=== PATIENT | female | born 1950 | race Caucasian/White ===

== ENCOUNTER 2016-08-23 18:00 | Inpatient (IN) | payer OTHER ==
--- NOTE | ~2016-08-23 | PN ---
Unit #: [id number] #: [id number] Patient: STEPHEN VALERA [id number] [facility] [address] [place] [address] [id number] MR#: [id number] NAME: STEPHEN VALERA ROOM: P251 Age: 66 Sex: F Admission Date: 08/23/2016 : 1950 Attending Physician: Que Mireles M.D. Admitting Physician: Que Mireles M.D. Primary Care Physician: Primary Care Physician Chantal BARNES PROGRESS NOTES DATE August 29, 2016 DISCUSSION Ms. Valera is a 66-year-old white female, who was seen today and chart was reviewed and the case was discussed with the staff. She has been anxious, withdrawn, and rather seclusive to herself. Meanwhile, she has been cooperative with the treatment recommendations and she has been taking her medications and tolerating them fairly well with no reported side effects. MENTAL STATUS EXAMINATION Middle-aged white female, who was casually dressed with fair personal hygiene and appears to be in no acute distress or discomfort. She was awake and alert on interaction with intact orientation. Her mood was anxious with a congruent affect. The patient denies any suicidal or homicidal ideations. Her insight and judgment remain slightly impaired. TREATMENT PLAN 1. We will continue her on her current medications and treatment protocol, and will monitor her response to the medications, and make further adjustments as needed. 2. We will continue to followup. Dictated by... Don John/hilda TD: 08/30/2016 11:29 JOB #: [id number] Unit #: [id number] #: [id number] Patient: STEPHEN VALERA PROGRESS NOTES Page 1 of 1 X Que Mireles MD PROGRESS NOTE
--- NOTE | ~2016-08-23 | PN ---
Unit #: [id number] #: [id number] Patient: STEPHEN VALERA [id number] [facility] [address] [place] [address] [id number] MR#: [id number] NAME: STEPHEN VALERA ROOM: P251 Age: 66 Sex: F Admission Date: 08/23/2016 : 1950 Attending Physician: Que Mireles M.D. Admitting Physician: Que Mireles M.D. Primary Care Physician: Primary Care Physician Chantal PARDO NOTES DATE 08/28/2016 DISCUSSION Ms. Valera is a 66-year-old white female who was seen today and chart was reviewed and case was discussed with the staff. She has been doing somewhat better and has been calm and cooperative and compliant with treatment recommendations. She has been taking medications and tolerating them fairly well with no reported side effects. MENTAL STATUS EXAMINATION An elderly white female who was casually dressed with fair personal hygiene, appears to be in no acute distress or discomfort. She was awake and alert on interaction with intact orientation. Her mood was anxious with congruent affect. She denies any suicidal or homicidal ideations. Her insight and judgement remains slightly impaired. TREATMENT PLAN We will continue her on her current medications and treatment protocol. We will monitor her response and make further adjustments as needed. Dictated by... Don John/nery TD: 08/30/2016 03:42 JOB #: [id number] PEAAPRYL PROGRESS NOTES Page 1 of 1 X Que Mireles MD PROGRESS NOTE
--- NOTE | ~2016-08-23 | PA ---
Unit #: [id number] #: [id number] Patient: STEPHEN CARNES [id number] [facility] [address] [place] [address] [id number] I MR#: [id number] NAME: STEPHEN CARNES ROOM: P178 Age: 66 Sex: F Admission Date: 08/23/2016 : 1950 Date of Assessment: 08/24/2016 Attending Physician: Que Mireles M.D. Admitting Physician: Que Mireles M.D. PSYCHIATRIC ASSESSMENT DATE OF SERVICE 08/24/2016. IDENTIFYING DATA Ms. Perrin is a 66-year-old, , white female, who is a resident of [place], [place] and was transferred to us from [facility] in [place], [place], and was accompanied by her family members. CHIEF COMPLAINT "I'm extremely dehydrated, I've not eaten for 3 days." HISTORY OF PRESENT ILLNESS Ms. Perrin is a 66-year-old white female, who was brought to the hospital reporting increasing depression, and having not eaten in 3 days feeling dehydrated and "I'm extremely depressed, I've been depressed since my went into the [facility] 5 months ago. I've lived by myself now. I've been drinking a pint of vodka a day for years." The patient reports that she has been alone and has been feeling isolating herself, and has not been eating and has been drinking heavy amounts of alcohol, and has been decompensating and reports increasing depression with vegetative symptoms and feelings of hopelessness and helplessness, though she denied any suicidal ideations, it appears that she has not been functioning and has been decompensating and was seen to be a significant danger to herself and as such, recommendation for inpatient level of care for safety and stabilization was made and the patient was medically cleared at the [facility] and then transferred to us. SUBSTANCE ABUSE HISTORY The patient reports a long history of alcohol dependence stating that she has been drinking for the last 30+ years and has been drinking a pint of vodka a day and denies any other drug abuse. PAST PSYCHIATRIC HISTORY The patient has had a history of inpatient psychiatric and chemical dependency treatment at [facility], [facility] and at other facilities, and review of the medical records indicate that currently she is on Effexor, Lamictal and BuSpar, but does not appear to be showing a therapeutic response to the medications. PAST MEDICAL HISTORY The patient's medical history is significant for hypertension. ALLERGIES Unit #: [id number] #: [id number] Patient: STEPHEN CARNES No known medication allergies. PERSONAL AND SOCIAL HISTORY A 66-year-old white female, who reports that she is and lives alone after her was placed in a [facility]. She reports poor social support system. MENTAL STATUS EXAMINATION An elderly white female, who was casually dressed with fair personal hygiene, appears to be in no acute distress or discomfort. She was awake and alert with impaired attention and concentration. Her mood was anxious and depressed with a congruent affect. Her speech was slow and restricted in content. She reports having suicidal ideations, but denies any homicidal ideations, and also denies any auditory or visual hallucinations. Her insight and judgment remain significantly impaired. DIAGNOSTIC IMPRESSION Psychiatric: Alcohol dependence, moderate and acute withdrawals; major depressive disorder, recurrent, moderate, without psychotic features. Medical: Hypertension. Stressors: Moderate psychosocial stressors. TREATMENT PLAN 1. The patient has presented with a history of mood disorder and substance abuse and has been decompensating and will need inpatient hospitalization for detoxification, safety, and stabilization. We will start her on detox protocol. We will closely monitor for any worsening withdrawal symptoms. 2. Supportive therapy was provided to the patient. 3. Safe, structured, and nourishing environment will be reported. ESTIMATED LENGTH OF STAY 4 to 5 days. ABILITY TO HELP SELF Limited. WILLINGNESS TO HELP SELF The patient appears to be willing to help self. STRENGTHS 1. Communicative. 2. Cooperative. PROBLEMS 1. Chronic dysphoric symptoms. 2. Chronic chemical dependency. 3. Poor social support system. DISCHARGE CRITERIA This will be contingent upon the patient's ability to go through detox without having any significant withdrawal symptoms as well as her ability to stay safe to herself, particularly after discharge from the hospital. Dictated by... Que Mireles M.D. Unit #: [id number] #: [id number] Patient: STEPHEN CARNES IAA/modl TD: 08/24/2016 08:29 JOB #: [id number] PSYCHIATRIC ASSESSMENT Page 1 of 1 X Que Mireles MD PSYCHIATRIC ASSESSMENT
--- NOTE | ~2016-08-23 | PN ---
Unit #: [id number] #: [id number] Patient: STEPHEN VALERA [id number] [facility] [address] [place] [address] [id number] I MR#: [id number] NAME: STEPHEN VALERA ROOM: P251 Age: 66 Sex: F Admission Date: 08/23/2016 : 1950 Attending Physician: Que Mireles M.D. Admitting Physician: Que Mireles M.D. Primary Care Physician: Primary Care Physician Chantal PARDO NOTES DATE August 26, 2016 DISCUSSION Ms. Valera is a 66-year-old white female, with mood disorder and alcohol dependence, who was seen today and chart was reviewed and the case was discussed with the staff. She has been anxious, withdrawn, and rather seclusive to herself and accepted whether she has been in a vegetative state and could not get up, and when we tried to get her up out of the bed even to a wheelchair, she acts like and reports that she has no strength in her legs. They cannot even get her out of her bed to change her bed sheets so they have to roll her around to change her bed sheets and staff also informed me that she can't even poor a glass of water to take her pills and they have to hold the glass of water and put pills in her mouth to make sure that she is getting her medications and she has been maintained on one-to-one level of precautions even though she has been in a private camera monitored room due to history of falls and the patient is unstable and unsteady on her daily functioning. She was unable to carry on any meaningful conversation with me and we will continue to maintain her on her current level of precautions and we will make further adjustments as needed. Dictated by... Don John/hilda TD: 08/26/2016 11:38 JOB #: [id number] Unit #: [id number] #: [id number] Patient: STEPHEN VALERA [facility] PROGRESS NOTES Page 1 of 1 X ChiQue oGnzalez MD X PROGRESS NOTE
--- NOTE | ~2016-08-23 | DS ---
Unit #: [id number] #: [id number] Patient: STEPHEN VALERA [id number] [facility] [address] [place] [id number] MR#: [id number] NAME: STEPHEN VALERA ROOM: P251 Age: 66 Sex: F Admission Date: 08/23/2016 : 1950 Discharge Date: 09/01/2016 Attending Physician: Que Mireles M.D. Primary Care Physician: Primary Care Physician No DISCHARGE SUMMARY IDENTIFYING DATA Ms. Valera is a 66-year-old white female, who is a resident of [place], [place] and was transferred to us from [facility] in [place]. DISCHARGE DIAGNOSES Psychiatric: Alcohol dependence, moderate and acute withdrawals; major depressive disorder, recurrent, moderate, without psychotic features. Medical: Hypertension. Stressors: Moderate psychosocial stressors. HISTORY OF PRESENT ILLNESS Please see initial psychiatric evaluation for details. PAST PSYCHIATRIC HISTORY Please see initial psychiatric evaluation for details. PAST MEDICAL HISTORY Please see initial psychiatric evaluation for details. HOSPITAL COURSE The patient [facility] and was oriented to the hospital environment. Routine p.r.n. medications were initiated. Upon initial presentation, the patient was seen to be unable to move at all and was unable to move even in her bed and staff for changing posture to prevent any bedsores and ordered to change the sheets, they have to move her one side to another and she could not even hold her glass of water to take the pills and staff were helping with that as well and apparently, she was walking and was taking care of herself at home just couple of weeks ago and has not moved and got out of the bed in the last week or so and has been drinking alcohol while in the bed and has been decompensating. She was seen to be very withdrawn, depressed with blunted affect, minimal interaction, and unable to carry on any conversation and was maintained on one-to-one level of precautions for safety and stabilization and medications were adjusted and she was resolved with rehab and then wheelchair was provided and staff had to assist her to get up and get in the wheelchair and put her feet down on the floor and put some weight and she was initially seen to be not responding and therefore had a rather complicated course of stay; however, she was encouraged and was able to follow, encouragement and was able to slowly come out and was taking the medications and started showing some improvement and then she proceeded from wheelchair to a walker and her oral intake was improved as well and overall, she was able to show a significant improvement and was able to come out, clean herself, and carry Unit #: [id number] #: [id number] Patient: STEPHEN VALERA on meaningful conversation with the staff and as such, it was decided that she will be discharged home and will continue treatment on an outpatient basis. DISCHARGE MEDICATIONS Remeron 15 mg at bedtime for depression. DISCHARGE CONDITION Stable. PROGNOSIS Fair. Dictated by... Don John/josh TD: 09/01/2016 07:57 JOB #: [id number] DISCHARGE SUMMARY Page 1 of 1 X Que Mireles MD X DISCHARGE SUMMARY
--- NOTE | ~2016-08-23 | PN ---
Unit #: [id number] #: [id number] Patient: STEPHEN VALERA [id number] [facility] [address] [place] [address] [id number] MR#: [id number] NAME: STEPHEN VALERA ROOM: P178 Age: 66 Sex: F Admission Date: 08/23/2016 : 1950 Attending Physician: Que Mireles M.D. Admitting Physician: Que Mireles M.D. Primary Care Physician: Primary Care Physician Chantal PARDO NOTES DATE August 25, 2016 DISCUSSION Ms. Valera is a 66-year-old white female, who was seen today and chart was reviewed and the case was discussed with the staff. She appears to be doing somewhat better than yesterday and was able to make eye contact and was trying to get out of her bed and transfer her into the wheelchair. Meanwhile, she has been taking the medications and tolerating them fairly well with no reported side effects. MENTAL STATUS EXAMINATION An elderly white female, who was casually dressed with fair personal hygiene and appears to be in no acute distress or discomfort. The patient was awake and alert with impaired attention and concentration. Her mood was anxious with a congruent affect. Her speech is slow and restricted in content. She reports having suicidal ideation but denies any homicidal ideations. Her insight and judgment remain slightly impaired. TREATMENT PLAN 1. We will continue her on her current medications and treatment protocol, and will monitor her response to the medications, and make further adjustments as needed. 2. We will continue to followup. Dictated by... Don John/hilda TD: 08/25/2016 08:02 JOB #: [id number] Unit #: [id number] #: [id number] Patient: STEPHEN VALERA PROGRESS NOTES Page 1 of 1 X Que Mireles MD PROGRESS NOTE
--- NOTE | ~2016-08-23 | PN ---
Unit #: [id number] #: [id number] Patient: STEPHEN VALERA [id number] [facility] [address] [place] [address] [id number] MR#: [id number] NAME: STEPHEN VALERA ROOM: P251 Age: 66 Sex: F Admission Date: 08/23/2016 : 1950 Attending Physician: Que Mireles M.D. Admitting Physician: Que Mireles M.D. Primary Care Physician: Primary Care Physician Chantal PARDO NOTES DATE August 30, 2016 DISCUSSION Ms. Valera is a 66-year-old white female, who was seen today and chart was reviewed and the case was discussed with the staff. She has been anxious, withdrawn, and rather seclusive to herself. Meanwhile, she has been cooperative with the treatment recommendations and she has been taking the medications and tolerating them fairly well with no reported side effects. MENTAL STATUS EXAMINATION An elderly white female, who was casually dressed with fair personal hygiene and appears to be in no acute distress or discomfort. The patient was awake and alert with intact orientation. Her mood was anxious and depressed with a congruent affect. She denies any suicidal or homicidal ideations. Her insight and judgment remain slightly impaired. TREATMENT PLAN 1. We will continue her on her current medications and treatment protocol, and will monitor her response to the medications, and make further adjustments as needed. 2. We will continue to followup. Dictated by... Don John/hilda TD: 08/31/2016 06:09 JOB #: [id number] Unit #: [id number] #: [id number] Patient: STEPHEN VALERA BULMAROAPRYL PROGRESS NOTES Page 1 of 1 X Que Mireles MD PROGRESS NOTE
--- NOTE | ~2016-08-23 | PN ---
Unit #: [id number] #: [id number] Patient: STEPHEN VALERA [id number] [facility] [address] [place] [address] [id number] I MR#: [id number] NAME: STEPHEN VALERA ROOM: P251 Age: 66 Sex: F Admission Date: 08/23/2016 : 1950 Attending Physician: Que Mireles M.D. Admitting Physician: Que Mireles M.D. Primary Care Physician: Primary Care Physician Chantal PARDO NOTES DATE 08/31/2016 DISCUSSION Ms. Valera is a 66-year-old white female who was seen today and chart was reviewed and case was discussed with the staff. She has been anxious, withdrawn and seclusive to herself. Meanwhile, she has been cooperative with treatment recommendations as she has been taking the medications and tolerating them fairly well with no reported side effects. MENTAL STATUS EXAMINATION An elderly white female who was casually dressed with fair personal hygiene, appears to be in no acute distress or discomfort. She was awake and alert on interaction with intact orientation. Her mood was anxious and depressed with congruent affect. Her speech was slow and goal-directed. She denies any suicidal or homicidal ideations. Her insight and judgement remains slightly impaired. TREATMENT PLAN 1. We will continue her on her current medications and treatment protocol. We will monitor her response to the medication and make further adjustments as needed. 2. We will continue to follow up. Dictated by... Don John/neyr TD: 09/01/2016 02:45 JOB #: [id number] Unit #: [id number] #: [id number] Patient: STEPHEN VALERA [facility] PROGRESS NOTES Page 1 of 1 X Qeu Mireles MD PROGRESS NOTE
--- NOTE | ~2016-08-23 | PN ---
Unit #: [id number] #: [id number] Patient: STEPHEN VALERA [id number] [facility] [address] [place] [address] [id number] I MR#: [id number] NAME: STEPHEN VALERA ROOM: P251 Age: 66 Sex: F Admission Date: 08/23/2016 : 1950 Attending Physician: Que Mireles M.D. Admitting Physician: Que Mireles M.D. Primary Care Physician: Primary Care Physician Chantal PARDO NOTES DATE 08/27/2016 DISCUSSION Ms. Valera is a 66-year-old white female who was seen today and chart was reviewed and case was discussed with the staff. She remains anxious, withdrawn and rather seclusive to herself. Meanwhile, she has been cooperative with treatment recommendations and has been taking medications and tolerating them fairly well with no reported side effects. MENTAL STATUS EXAMINATION An elderly white female who was casually dressed with fair personal hygiene and appears to be in no acute distress or discomfort. She was awake and alert with impaired attention and concentration. Her mood was anxious with congruent affect. She denies any suicidal or homicidal ideations. Her insight and judgement remains slightly impaired. TREATMENT PLAN 1. Will continue on current medications and treatment protocol. Will monitor her response to the medications and make further adjustments as needed. 2. Will continue to follow up. Dictated by... Que Mireles M.D. IAA/cely TD: 08/27/2016 17:55 JOB #: [id number] Unit #: [id number] #: [id number] Patient: STEPHEN VALERA BULMAROAPRYL PROGRESS NOTES Page 1 of 1 X Que Mireles MD PROGRESS NOTE
--- NOTE | ~2016-08-23 | A ---
[facility] Nutrition Therapy DATE: 08/27/16 Patient: STEPHEN CARNES Physician: NASRA Address: [address] [place] [address] Room/Bed: [address], Zip: [place] [address] Admit Date: 08/23/16 Date of : [birth year] Height: 5 7 Weight: 134 61.85589 NUTRITIONAL ASSESSMENT: REASON: CONSULT "POOR NUTRITION" PATIENT ADMITTED FOR ETOH DETOX AND DEPRESSION PMH: LONG HX ETOH ABUSE (30+ YEARS), HTN, HLD Anthropometrics: HT: 5'7", WT: 135#, BMI: 21.1, %IBW: 100 Labs: 08/24/16: CREAT: 0.4, NA: 133, K: 3.4 Meds: REMERON, MVI, EFFEXOR-XR, ZESTRIL, DETOX PROTOCOL Assessment: PATIENT IS A 66 Y/O FEMALE AMDITTED FOR ETOH DETOX AND DEPRESSION. PATIENT IS RETIRED, LIVES ALONE, SMOKES 1/2 PPD, AND DRINKS A PINT ETOH DAILY. PATIENT HAS BEEN DEPRESSED SINCE HER HAS BEEN IN A CARE HOME FOR PAST 5 MONTHS. PER NEEDS ASSESSMENT PATIENT STATED THAT SHE HAD NOT EATEN IN 3 DAYS, HAD A POOR APPETITE WITH A 203 WEIGHT LOSS OVER LAST SEVERAL MONTHS, AND HAD NOT BEEN SLEEPING WELL. SINCE ADMIT PATIENT HAS BEEN IN SOMEWHAT OF A VEGETATIVE STATE, REPORTS NO STRENGTH IN HER LEGS, UNABLE TO CARRY ON MEANINGFUL CONVERSATION, AND IS NON-EXPRESSIVE OF HER NEEDS TO STAFF. PATIENT IS ON A 1:1 AT ALL TIMES AND STAFF HAS BEEN UNABLE TO GET PATIENT OUT OF BED. IT IS NOTED THAT PATIENT IS INCONTINENT, HAS CONFUSION, SHE IS UNABLE TO COMPLETE ADL'S, AND SHE HAS A HX OF INPATIENT PSYCH AND CHEMICAL DEPENDENCY TREATMENT. NURSING REPORTS FAIR PO INTAKES. MEDS AND LABS REVIEWED. REMERON AND PSYCH MEDS MAY CAUSE WEIGHT AND APPETITE FLUCTUATIONS. WEIGHT HX PER [email or web address] SHOWS NO SIGNIFICANT WEIGHT CHANGES X 1 YEAR. PATIENT'S BMI IS WITHIN A HEALTHY RANGE AND SHE IS 100% OF HER IBW. PATIENT IS ON A REGULAR DIET. THERE ARE NO SKIN OR GI ISSUES NOTED ATT. Dx: INADEQUATE NUTRIENT INTAKE R/T CURRENT CONDITION, DETOX AEB SELF-REPORTED WEIGHT LOSS AND DECREASED APPETITE, FAIR PO INTAKES Intervention: REGULAR DIET, MEDS PER MD, PSYCH, DETOX Monitoring, Evaluation and Goals: 1. ADEQUATE PO INTAKES >50% OF MEALS 2. PREVENT, CORRECT MICRO/MACRO NUTRIENT DEFICIENCIES 3. MAINTAIN CURRENT WEIGHT, PREVENT WEIGHT LOSS MONITOR: WEIGHTS, LABS, PO/FLUID INTAKES [facility] Nutrition Therapy DATE: 08/27/16 Patient: STEPHEN CRANES Physician: NASRA Address: [address] [place] [address] Room/Bed: [address], Zip: [place] [address] Admit Date: 08/23/16 Date of : [birth year] Height: 5 7 Weight: 134 61.02510 Recommendations: 1. CONTINUE REGULAR DIET TOLERATED. OFFER SNACKS BETWEEN MEALS 2. ENCOURAGE ADEQUATE PO AND FLUID INTAKES. PATIENT MAY NEED ASSISTANCE WITH MEALS D/T CURRENT STATE AND NEEDING 1:1 AT ALL TIMES. ASSISTANCE WITH MEALS MAY INCREASE PATIENT'S PO INTAKES 3. OBTAIN NEW WEIGHT AND CONTINUE TO WEIGH PATIENT ROUTINELY (EVERY 3-4 DAYS) 4. OBTAIN A NEW BMP TO ASSESS PATIENT'S NUTRITIONAL STATUS AND ELECTROLYTE LEVELS. 5. IF PO INTAKES FALL BELOW 50% OF MEALS PLEASE ORDER ENSURE BID TO PROMOTE ADEQUATE KCAL AND PROTEIN INTAKES RD TO F/U PER PROTOCOL AND PRN R/T PATIENT MILDLY COMPROMISED Respectfully, PARVEZ SURESH, RD, LD Food and Nutritional Services [facility] cc: client file
--- NOTE | ~2016-08-23 | HP ---
Unit #: [id number] #: [id number] Patient: MICHELLE CARNES [id number] [place] [address] [id number] MR#: [id number] NAME: MICHELLE CARNES ROOM: P178 Age: 66 Sex: F Admission Date: 08/23/2016 : 1950 Attending Physician: Que Mireles M.D. Admitting Physician: Que Mireles M.D. Primary Care Physician: Primary Care Physician No HISTORY AND PHYSICAL HISTORY OF PRESENT ILLNESS Michelle is a 66 year old admitted to [facility] because of her abuse of alcohol. She is detoxing. She has had other admissions to this facility for treatment of the same. PAST MEDICAL HISTORY 1. Long history of alcohol abuse. She continues to drink. 2. High blood pressure. 3. Hyperlipidemia. PAST SURGICAL HISTORY Nothing reported. ALLERGIES No known drug allergies. SOCIAL HISTORY Smokes 1/2 pack per day. Drinks half pint of vodka on a daily basis and denies illicit drug use. FAMILY HISTORY Medically noncontributory. REVIEW OF SYSTEMS CONSTITUTIONAL: No fever or chills. HEENT: Denies any sore throat, ear pain or runny nose. CARDIOVASCULAR: Denies chest pain, irregular heart rhythm or palpitations. CHEST: Denies shortness of breath or cough. No hemoptysis. GASTROINTESTINAL: Denies nausea, vomiting, diarrhea or chronic constipation. ENDOCRINE: Denies history of increased thirst or urination. No recent significant weight loss or gain. GENITOURINARY: Denies dysuria, frequency, or hematuria. SKIN: Denies any rashes. HEMATOLOGIC: Denies history of increased bleeding or bruising. MUSCULOSKELETAL: Denies any hot, swollen joints. No generalized muscle pain. She reports that she is quite weak in her lower extremities. She is getting around with the assistance of a wheelchair. NEUROLOGIC: Denies problems with vision or speech. No frequent, severe headaches. No numbness, tingling or weakness in any extremities. Denies loss of bladder or bowel control. CURRENT MEDICATIONS Unit #: [id number] #: [id number] Patient: MICHELLE CARNES 1. Detox protocol. 2. Remeron 15 mg q.h.s. 3. Lipitor 80 mg q.h.s. 4. Mobic 15 mg daily. 5. Aspirin 81 mg daily. 6. Lamictal 100 mg b.i.d. 7. Zestril 5 mg daily. 8. Nicotine patch 21 mg daily. PHYSICAL EXAMINATION GENERAL: Alert, thin, elderly lady no apparent distress. VITAL SIGNS: Blood pressure 126/86, heart rate 90, respirations 16, temperature 98.6. WEIGHT: 135. HEIGHT: 5 feet 7 inches. SKIN: Warm and dry without rash or lesion. HEENT: Normocephalic. TMs not viewed. Oral and nasal passages clear. Conjunctivae clear. PERRLA. EOMs intact. NECK: Supple without lymphadenopathy or thyromegaly. HEART: Regular rate and rhythm without murmur. LUNGS: Clear. ABDOMEN: Soft, nontender. : Not done. EXTREMITIES: No evidence of cyanosis, clubbing or edema. Moves all without focal deficit. NEUROLOGICAL: Unable to complete extended exam. She does move all extremities without focal deficit. Hand commercial real estate sales manager is equal and gait is normal. IMPRESSION Psychiatric admission. RECOMMENDATIONS PSYCHIATRIC: Per psychiatrist. MEDICAL: See no contraindications to participate in facility's activities. MEDICAL PROGNOSIS Good. MEDICAL CONDITION Stable. Dictated by... Candace Saravia PSamanASaman-Haris. for Don Saravia/cely TD: 08/24/2016 19:52 JOB #: [id number] Unit #: [id number] #: [id number] Patient: MICHELLE CARNES HISTORY AND PHYSICAL Page 1 of 1 X Candace Saravia X HISTORY AND PHYSICAL
[~2016-08-23 18:00] MED LIST: CEPHALEXIN500 M1 PO; HYDROXYZINE HCL25 M1 PO; ROPINIROLE HCL1 MG PO
[2016-08-24 09:47] LABS: ALBUMIN SERUM 3.6 g/dL (3.5-5.0); BILIRUBIN,TOTAL 2.1 mg/dL (0.2-2.0); BUN/CREATININE RATIO 27.5; CALCIUM SERUM 9.1 mg/dL (8.4-10.2); CREATININE SERUM 0.4 mg/dL (0.6-1.4); GLOM FILT RATE Estimated 108.6 mL/min (>60); POTASSIUM 3.4 mmol/L (3.5-5.1)
== END 2016-09-01 10:00 | disposition home or self-care (01) | DRG 897 ==
LOC: P2L 21:27 → P1E 21:27 → P2L 08-25 13:58
PROVIDERS: Psychiatry & Neurology Psychiatry
PROC: HZ2ZZZZ Detoxification Services for Substance Abuse Treatment (ICD-10-PCS; principal; 2016-08-24)
DX: F10.239 Alcohol dependence with withdrawal, unspecified (principal); F33.1 Major depressive disorder, recurrent, moderate; I10 Essential (primary) hypertension; E78.5 Hyperlipidemia, unspecified; F17.210 Nicotine dependence, cigarettes, uncomplicated
CPT/HCPCS: 80053; 86592; J2550

== ENCOUNTER 2016-09-24 18:18 | Inpatient (IN) | payer OTHER ==
--- NOTE | ~2016-09-24 | CO ---
Unit #: [id number] #: [id number] Patient: STEPHEN CARNES R [id number] [place] [address] [id number] I MR#: [id number] NAME: STEPHEN CARNES ROOM: [facility] Age: 66 Sex: F Admission Date: 09/25/2016 : 1950 Attending Physician: Que Mireles M.D. Primary Care Physician: Primary Care Physician No Consultation Date: 10/03/2016 CONSULTATION REPORT ORDERING PROVIDER Dr. Mireles. REASON FOR CONSULT To follow up on foot swelling. SUBJECTIVE X-ray came back and showed an oblique fracture of the midshaft of the fifth metatarsal. This was mildly displaced. The patient has been refusing the Boris wrap. Instead, we will get an orthopedic boot and have the patient follow up with Ortho on Tuesday if possible. Dictated by... Essie Jones/josh TD: 10/04/2016 01:34 JOB #: [id number] CONSULTATION REPORT Page 1 of 1 X PADMAJA KELLER APRN CONSULTATION REPORT
--- NOTE | ~2016-09-24 | PN ---
Unit #: [id number] #: [id number] Patient: STEPHEN VALERA [id number] [facility] [address] [place] [address] [id number] I MR#: [id number] NAME: STEPHEN VALERA ROOM: [facility] Age: 66 Sex: F Admission Date: 09/25/2016 : 1950 Attending Physician: Que Mireles M.D. Admitting Physician: Que Mireles M.D. Primary Care Physician: Primary Care Physician Chantal PARDO NOTES DATE October 03, 2016 DISCUSSION Ms. Valera is a 66-year-old white female, who was seen today and chart was reviewed and the case was discussed with the staff. The patient has been anxious, withdrawn, depressed, and rather seclusive to herself. Meanwhile, she has been cooperative with the treatment recommendations and has been taking the medications and tolerating them fairly well with no reported side effects. MENTAL STATUS EXAMINATION An elderly white female, who was casually dressed with fair personal hygiene and appears to be in no acute distress or discomfort. The patient was awake and alert on interaction with intact orientation. Her mood is anxious and depressed with a congruent affect. The patient denies any suicidal or homicidal ideations. Her insight and judgment remain slightly impaired. TREATMENT PLAN 1. We will continue her on her current treatment protocol, and will monitor her response to the medications, and make further adjustments as needed. 2. We will continue to followup. Dictated by... Don John/hilda TD: 10/04/2016 10:53 JOB #: [id number] Unit #: [id number] #: [id number] Patient: STEPHEN VALERA [facility] PROGRESS NOTES Page 1 of 1 X Que Mireles MD PROGRESS NOTE
--- NOTE | ~2016-09-24 | DS ---
Unit #: [id number] #: [id number] Patient: STEPHEN VALERA [id number] [facility] [address] [place] [address] [id number] I MR#: [id number] NAME: STEPHEN VALERA ROOM: 65 Age: 66 Sex: F Admission Date: 09/25/2016 : 1950 Discharge Date: 10/04/2016 Attending Physician: Que Mireles M.D. Primary Care Physician: Primary Care Physician No DISCHARGE SUMMARY IDENTIFYING DATA Ms. Valera is a 66-year-old, , white female, who is a resident of [place], [place] and was transferred to from [facility]. DISCHARGE DIAGNOSES Psychiatric: Major depressive disorder, recurrent, moderate, without psychotic features; alcohol dependence, moderate and acute withdrawals. Medical: Hypertension, dyslipidemia, history of withdrawal seizures. Stressors: Moderate psychosocial stressors. HISTORY OF PRESENT ILLNESS Please see initial psychiatric evaluation for details. PAST PSYCHIATRIC HISTORY Please see initial psychiatric evaluation for details. PAST MEDICAL HISTORY Please see initial psychiatric evaluation for details. HOSPITAL COURSE The patient [facility] and was oriented to the hospital environment. Routine p.r.n. medications were initiated, and she was started back on her home medications and medications were adjusted and she was closely monitored. She was seen to be exhibiting some increasing depression, was unable to function and was having some confusion and bizarre behavior and was and was failing to thrive and was kept on one-to-one level of precaution for several days and as well as the patient was unsteady on her feet and was provided close care and Remeron was initiated as an antidepressant and she slowly started showing a therapeutic response, followed by which, it was decided that she will be kept on her current medications and will be discharged home and will continue treatment on an outpatient basis. DISCHARGE MEDICATIONS Remeron 15 mg at bedtime for depression. DISCHARGE CONDITION Stable. Unit #: [id number] #: [id number] Patient: STEPHEN VALERA. Dictated by... Que Mireles M.D. IAA/modl TD: 10/04/2016 07:19 JOB #: [id number] DISCHARGE SUMMARY Page 1 of 1 X Que Mireles MD DISCHARGE SUMMARY
--- NOTE | ~2016-09-24 | PN ---
Unit #: [id number] #: [id number] Patient: STEPHEN VALERA [id number] [facility] [address] [place] [address] [id number] I MR#: [id number] NAME: STEPHEN VALERA ROOM: P265 Age: 66 Sex: F Admission Date: 09/25/2016 : 1950 Attending Physician: Que Mireles M.D. Admitting Physician: Que Mireles M.D. Primary Care Physician: Primary Care Physician Chantal CHAMBERLAINCE PROGRESS NOTES SUBJECTIVE Ms. Valera is a 66-year-old white female who was seen today and chart was reviewed and case was discussed with the staff. She has been anxious, withdrawn, and seclusive to herself. Thought blocking, looseness of association, some confusion and has been maintained one-to-one level of precaution and as such, we will maintain her on current treatment protocol and other precautions. We will monitor and make further adjustments as needed. Dictated by... Don John/josh TD: 09/29/2016 13:30 JOB #: [id number] [facility] PROGRESS NOTES Page 1 of 1 X Que Mireles MD PROGRESS NOTE
--- NOTE | ~2016-09-24 | CR126 ---
[facility] A Service of [facility] & [facility] / [facility] RADIOLOGY TEXT RESULTS PATIENT: STEPHEN CARNES LOCATION: P2 P265-1 : [birth year] UNIT #: [id number] AGE: [address]: Que Mireles MD SEX: F ORDER DR: [id number] [facility] [address] [place], [place] [address] [id number] I MR#: [id number] Acc #: [id number] NAME: STEPHEN CARNES : 1950 SEX: F STUDY DATE/TIME: 10/02/2016 14:08 UNIT: [facility]OM[facility] STUDY DESCRIPTION: CR Foot Complete Min 3 View Lt Attending Physician: Que Mireles M.D. Ordering Physician: Vilma Shearer M.D. Primary Care Physician: No Primary Care Physician MEDICAL IMAGING REPORT This report is preliminary unless electronic signature is present EXAM Left foot, 3 views 10/02/2016 HISTORY Pain along lateral aspect of foot for about 2 weeks. FINDINGS There is an oblique fracture of the mid shaft of the fifth metatarsal, mildly displaced. No other fracture or other acute abnormality is seen. Dictated by... Levi Walls M.D. THIS IS AN ELECTRONICALLY VERIFIED REPORT Levi Walls M.D. at 10/12/2016 4:02 PM TEV/saroj TD: 10/03/2016 04:55 JOB #: [id number] MEDICAL IMAGING REPORT Page 1 of 1 COPY
--- NOTE | ~2016-09-24 | CO ---
Unit #: [id number] #: [id number] Patient: STEPHEN CARNES [id number] [place] [address] [id number] I MR#: [id number] NAME: STEPHEN CARNES ROOM: [facility] Age: 66 Sex: F Admission Date: 09/25/2016 : 1950 Attending Physician: Que Mireles M.D. Primary Care Physician: Primary Care Physician No Consultation Date: 10/02/2016 CONSULTATION REPORT ORDERING PROVIDER Dr. Mireles. REASON FOR CONSULT 1. Sore in her mouth. 2. Left foot swelling. SUBJECTIVE The patient reports that for approximately 2 weeks, she has noted a painful sore under her tongue. She denies biting her tongue or injuring it in any way. She reports that it hurts to eat and to swallow. She reports some swelling of her tongue as well. The patient also reports left foot pain and swelling. She is unclear when this started. She denies any injury, but of note, she is a severe alcoholic and may have injured it while drinking. OBJECTIVE The patient has a significant 1 to 2 cm lesion on the posterior aspect of her left tongue. It does appear to be slightly erosive. There is no drainage coming from it at this time. Left foot is mildly edematous and tender to palpate. She does have good range of motion of her digits in her ankle. Edema was 1+, pitting. She had positive pulses, negative Homans sign. No swelling in her calf. Her vital signs are stable. ASSESSMENT 1. Tongue lesion. 2. Left pedal edema and pain. PLAN Plan is to start the patient on erythromycin for possible infection; however, I did stress to the patient that once she is discharged, she needs to see a dentist or oral surgeon because I cannot rule out a cancerous lesion. For her foot swelling, we will get an x-ray and if negative, wrap with an Boris wrap and prop. Dictated by... Essie Jones/modl TD: 10/03/2016 01:41 Unit #: [id number] #: [id number] Patient: STEPHEN CARNES JOB #: [id number] CONSULTATION REPORT Page 1 of 1 X PADMAJA KELLER APRN CONSULTATION REPORT
--- NOTE | ~2016-09-24 | PA ---
Unit #: [id number] #: [id number] Patient: STEPHEN VALERA [id number] [facility] [address] [place] [address] [id number] MR#: [id number] NAME: STEPHEN VALERA ROOM: P204 Age: 66 Sex: F Admission Date: 09/25/2016 : 1950 Date of Assessment: Attending Physician: Que Mireles M.D. Admitting Physician: Que Mireles M.D. PSYCHIATRIC ASSESSMENT IDENTIFYING DATA Ms. Valera is a 66-year-old white female who is a resident of [place], [place] and was just discharged from my care last month and was transferred back to us from [facility] in [place]. CHIEF COMPLAINT "I have been feeling depressed and it has been getting worse and worse." HISTORY OF PRESENT ILLNESS Ms. Valera is a 66-year-old white female who took herself to the emergency room at [facility] in [place] and stated that she has been very depressed and has been getting worse and worse, and she stated that if she had a gun "I would blow my brains out" and the patient reports that she was not eating or sleeping and has been drinking a pint of vodka daily for the last 30 years and was detoxed during her hospitalization last month and apparently she relapsed soon afterwards and now is back to drinking one pint of vodka on a daily basis and reports history of withdrawal seizures and currently reporting nausea, headache, tremors, and agitation because she has only had one shot this morning. However, upon presentation to the emergency room, her blood alcohol level was 0.20. She reports that she is living alone now, that her is in a fpc and reports increasing depression and feelings of hopelessness and seen to be a significant danger to self, and therefore recommendation for inpatient level of care was made and the patient was transferred to us. SUBSTANCE ABUSE HISTORY The patient reports history of alcohol dependence and has been drinking since she was in the 30s and currently has been drinking a pint of vodka on daily basis, and denies any other drug abuse. PAST PSYCHIATRIC HISTORY The patient has a history of inpatient chemical dependency treatment at [facility] and review of the medical records indicates that she has been diagnosed and treated for mood disorder. She is supposed to be on Remeron but has been noncompliant with medication as such, has been decompensating. PAST MEDICAL HISTORY The patient's medical history is significant for hypertension, seizure disorder, dyslipidemia. ALLERGIES No known medication allergies. Unit #: [id number] #: [id number] Patient: STEPHEN VALERA PERSONAL AND SOCIAL HISTORY A 66-year-old white female who reports that she is and her lives in a fpc, and she has been living alone and has poor social support system. MENTAL STATUS EXAMINATION An elderly white female who was casually dressed with fair personal hygiene, appears to be in no acute distress or discomfort. She was awake and alert on interaction with intact orientation to time, place, and person. Her mood was anxious and depressed with a congruent affect. Her speech was slow and restricted in content. Her thought processes were disorganized with some looseness of associations and flight of ideas. Her insight and judgment remain significantly impaired. DIAGNOSTIC IMPRESSION Psychiatric: Major depressive disorder, recurrent, moderate, without psychotic features. Alcohol dependence, moderate. Medical: Hypertension, dyslipidemia, history of withdrawal seizures. Stressors: Moderate psychosocial stressors. TREATMENT PLAN 1. The patient has presented with a history of. DICTATION ENDS HERE Dictated by... Que Mireles M.D. KEZIA/josh TD: 09/25/2016 11:29 JOB #: [id number] PSYCHIATRIC ASSESSMENT Page 1 of 1 X Que Mireles MD X PSYCHIATRIC ASSESSMENT
--- NOTE | ~2016-09-24 | PN ---
Unit #: [id number] #: [id number] Patient: STEPHEN VALERA [id number] [facility] [address] [place] [address] [id number] I MR#: [id number] NAME: STEPHEN VALERA ROOM: 65 Age: 66 Sex: F Admission Date: 09/25/2016 : 1950 Attending Physician: Que Mireles M.D. Admitting Physician: Que Mireles M.D. Primary Care Physician: Primary Care Physician Chantal PARDO NOTES DATE OF SERVICE: 09/26/2016 SUBJECTIVE Ms. Valera is a 66-year-old white female who was seen today and chart was reviewed and case was discussed with the staff. She has been anxious, withdrawn, and rather seclusive to herself, though appears to be doing somewhat better than yesterday and appears to be coming out of the detox without any complications. She has been cooperative with treatment recommendations and has been taking the medications and tolerating them fairly well with no reported side effects. MENTAL STATUS EXAMINATION An elderly white female who was casually dressed with fair personal hygiene, appears to be in no acute distress or discomfort. She was awake and alert with impaired attention and concentration. Her mood was anxious with a congruent affect. She denies any suicidal or homicidal ideations. Her insight and judgment remain slightly impaired. TREATMENT PLAN 1. We will continue her on her current medications and treatment protocol. We will monitor her response to the medications and make further adjustments as needed. 2. We will continue to follow up. Dictated by... Don John/josh TD: 09/28/2016 02:11 JOB #: [id number] Unit #: [id number] #: [id number] Patient: STEPHEN VALERA [facility] PROGRESS NOTES Page 1 of 1 X Que Mireles MD PROGRESS NOTE
--- NOTE | ~2016-09-24 | PN ---
Unit #: [id number] #: [id number] Patient: STEPHEN VALERA [id number] [facility] [address] [place] [address] [id number] I MR#: [id number] NAME: STEPHEN VALERA ROOM: [facility] Age: 66 Sex: F Admission Date: 09/25/2016 : 1950 Attending Physician: Que Mireles M.D. Admitting Physician: Que Mireles M.D. Primary Care Physician: Primary Care Physician Chantal PARDO NOTES DATE 10/01/2016 DISCUSSION Ms. Valera is a 66-year-old white female who was seen today and chart was reviewed and case was discussed with the staff. She has been anxious, withdrawn, depressed and had a rough day yesterday as she found out that her nephew and she was having some increasing depression and anxiety and a meltdown with crying spells and p.r.n. medications were given to cut down on anxiety. Meanwhile, she remains depressed, withdrawn, seclusive to herself and has not been thriving and has not been eating or sleeping and has been unsteady on her feet and has been falls risk and as such has been maintained on one-to-one level of precautions in hospital bed has been provided as well. MENTAL STATUS EXAMINATION An elderly white female who was casually dressed with fair personal hygiene and appears to be in no acute distress or discomfort. She was awake and alert with impaired attention and concentration. Her mood was anxious and depressed with congruent affect. She reports having suicidal ideation but denies any homicidal ideations. Her insight and judgement remains slightly impaired. TREATMENT PLAN 1. Will continue on current medications and treatment protocol and will monitor her response to the medications and make further adjustments as needed. 2. Will continue to follow up. Dictated by... Don John/cely TD: 10/01/2016 22:37 JOB #: [id number] Unit #: [id number] #: [id number] Patient: STEPHEN VALERA PEAAPRYL PROGRESS NOTES Page 1 of 1 X Que Mireles MD NOTE
--- NOTE | ~2016-09-24 | PN ---
Unit #: [id number] #: [id number] Patient: STEPHEN VALERA [id number] [facility] [address] [place] [address] [id number] I MR#: [id number] NAME: STEPHEN VALERA ROOM: P265 Age: 66 Sex: F Admission Date: 09/25/2016 : 1950 Attending Physician: Que Mireles M.D. Admitting Physician: Que Mireles M.D. Primary Care Physician: Primary Care Physician Chantal BARNES PROGRESS NOTES DATE 09/28/2016 DISCUSSION Ms. Valera is a 66-year-old white female who was seen today and chart was reviewed and case was discussed with the staff. She has been anxious, withdrawn and rather seclusive to herself and remains confused, disorganized, disoriented and as such has been maintained on one to one level of precautions. MENTAL STATUS EXAMINATION An elderly white female who was casually dressed with fair personal hygiene, appears to be in no acute distress or discomfort. She was awake and alert with impaired attention and concentration was seen to be confused and disoriented to time, place and person. Her mood was anxious with congruent affect. Her speech was (:48). Her thought processes were disorganized with some looseness of associations and paranoid ideations. Her insight and judgement remains significantly impaired. TREATMENT PLAN 1. We will continue her on her current medications and treatment protocol. We will monitor her response to the medication and make further adjustments as needed. 2. We will continue to follow up. Dictated by... Don John/nery TD: 09/29/2016 04:05 JOB #: [id number] Unit #: [id number] #: [id number] Patient: STEPHEN VALERA [facility] PROGRESS NOTES Page 1 of 1 X Que Mireles MD PROGRESS NOTE
--- NOTE | ~2016-09-24 | PN ---
Unit #: [id number] #: [id number] Patient: STEPHEN VALERA [id number] [facility] [address] [place] [address] [id number] I MR#: [id number] NAME: STEPHEN VALERA ROOM: P265 Age: 66 Sex: F Admission Date: 09/25/2016 : 1950 Attending Physician: Que Mireles M.D. Admitting Physician: Que Mireles M.D. Primary Care Physician: Primary Care Physician Chantal BARNES PROGRESS NOTES DATE 09/30/2016 DISCUSSION Ms. Valera is a 66-year-old white female who was seen today and chart was reviewed and case was discussed with the staff. She has been anxious, withdrawn, seclusive to herself. Meanwhile, she has been maintained on one-to-one level of precaution as staff has been making effort to get her out of her bed and help her walk a little bit. Meanwhile, she has been taking medications and tolerating them fairly well. MENTAL STATUS EXAMINATION An elderly white female who was casually dressed with fair personal hygiene and appears to be in no acute distress or discomfort. She was awake and alert with impaired attention and concentration. Her mood was anxious with congruent affect. She denies any suicidal or homicidal ideation. Her insight and judgement remains slightly impaired. TREATMENT PLAN Will continue on current treatment protocol. Will monitor her response and make further adjustments as needed. Dictated by... Don John/cely TD: 09/30/2016 23:05 JOB #: [id number] Unit #: [id number] #: [id number] Patient: STEPHEN VALERA [facility] PROGRESS NOTES Page 1 of 1 X Que Mireles MD PROGRESS NOTE
--- NOTE | ~2016-09-24 | PN ---
Unit #: [id number] #: [id number] Patient: STEPHEN CARNES [id number] [facility] [address] [place] [address] [id number] MR#: [id number] NAME: STEPHEN CARNES ROOM: 65 Age: 66 Sex: F Admission Date: 09/25/2016 : 1950 Attending Physician: Que Mireles M.D. Admitting Physician: Don John NOTES DATE OF SERVICE: 09/27/2016 SUBJECTIVE Ms. Perrin is a 66-year-old white female, who was seen today and chart was reviewed and case was discussed with the staff. She has been anxious, withdrawn, and confused and has been put on one-to-one level precautions as she has been unsteady on her feet and wheelchair has been provided. Meanwhile, she has been taking medications and tolerating them fairly well and no agitation or aggression has been reported. MENTAL STATUS EXAMINATION An elderly white female who was casually dressed with fair personal hygiene, appears to be in slight distress and discomfort. She was awake and alert with impaired attention and concentration. Her mood was anxious with a congruent affect. Her speech was slow and tangential. Her thought process were disorganized with some looseness of association. Her insight and judgment remain significantly impaired. TREATMENT PLAN 1. We will continue on her current medications and treatment protocol. We will monitor her response to the medications and make further adjustments as needed. 2. We will continue to follow up. Dictated by... Don John/josh TD: 09/28/2016 07:20 JOB #: [id number] Unit #: [id number] #: [id number] Patient: STEPHEN CARNES MOLLY PARDO NOTES Page 1 of 1 X Que Mireles MD PROGRESS NOTE
--- NOTE | ~2016-09-24 | HP ---
Unit #: [id number] #: [id number] Patient: STEPHEN CARNES [id number] [place] [address] [id number] MR#: [id number] NAME: STEPHEN CARNES ROOM: P204 Age: 66 Sex: F Admission Date: 09/25/2016 : 1950 Attending Physician: Que Mireles M.D. Admitting Physician: Que Mireles M.D. Primary Care Physician: Primary Care Physician No HISTORY AND PHYSICAL HISTORY OF PRESENT ILLNESS The patient is a 66-year-old female admitted to [address] [place] [address] on 09/25/2016 to detox from alcohol and for suicidal ideation. PAST MEDICAL HISTORY 1. Alcohol abuse 2. Hypertension 3. Hyperlipidemia PAST SURGICAL HISTORY The patient denies. SOCIAL HISTORY She is retired. She lives alone. She smokes 1/2 pack of cigarettes daily and drinks a pint of alcohol per day. FAMILY MEDICAL HISTORY Noncontributory. ALLERGIES No known drug allergies. CURRENT MEDICATIONS 1. Remeron 2. Zestril 3. Requip 4. Lipitor 5. Lamictal 6. Aspirin 7. Mobic REVIEW OF SYSTEMS CONSTITUTIONAL: No fever or chills. HEENT: Denies any sore throat, ear pain or runny nose. CARDIOVASCULAR: Denies chest pain, irregular heart rhythm or palpitations. CHEST: Denies shortness of breath or cough. No hemoptysis. GASTROINTESTINAL: Denies nausea, vomiting, diarrhea or chronic constipation. ENDOCRINE: Denies history of increased thirst or urination. No recent significant weight loss or gain. GENITOURINARY: Denies dysuria, frequency, or hematuria. SKIN: Denies any rashes. HEMATOLOGIC: Denies history of increased bleeding or bruising. Unit #: [id number] #: [id number] Patient: STEPHEN CARNES MUSCULOSKELETAL: Denies any hot, swollen joints. No generalized muscle pain. NEUROLOGIC: Denies problems with vision or speech. No frequent, severe headaches. No numbness, tingling or weakness in any extremities. Denies loss of bladder or bowel control. PHYSICAL EXAM GENERAL: She is awake, alert and oriented in no acute distress. VITAL SIGNS: Temperature 98.8, heart rate 105, respiration 22, blood pressure 153/90. HEIGHT: 5'7". WEIGHT: 130 pounds. SKIN: Warm and dry without rash or lesion. HEENT: Normocephalic. TMs not viewed. Oral and nasal passages clear. Conjunctivae clear. PERRLA. EOMs intact. NECK: Supple without lymphadenopathy or thyromegaly. HEART: Regular rate and rhythm without murmur. LUNGS: Clear. ABDOMEN: Soft, nontender. : Not done. EXTREMITIES: No evidence of cyanosis, clubbing or edema. Moves all without focal deficit. NEUROLOGICAL: Grossly within normal limits. Cranial Nerves: II: Visual mcelroy are intact. III, IV AND : Extraocular movements are intact. Pupils are equal, round and reactive to light. V: Facial sensation is grossly normal. VII: Facial movements and expression are normal. VIII: Auditory acuity grossly intact. IX, X: Uvula is midline. Phonation is normal. XI: Patient shrugs shoulders and turns head normally. XII: Tongue protrudes in the midline. Sensory and Motor Function: Sensory and motor sensation is grossly normal. Motor: moves all extremities well. IMPRESSION 1. Psychiatric admission. 2. Alcohol abuse. 3. Hypertension. 4. Hyperlipidemia. RECOMMENDATIONS Psychiatric per psychiatrist. MEDICAL: No contraindication to participate in facility activities. MEDICAL PROGNOSIS Good. MEDICAL CONDITION Stable. Dictated by... Soha Mathias A.P.R.N. Unit #: [id number] #: [id number] Patient: STEPHEN CARNES GUSTAVO/nery TD: 09/27/2016 03:06 JOB #: [id number] HISTORY AND PHYSICAL Page 1 of 1 X SOHA MATHIAS APRN HISTORY AND PHYSICAL
== END 2016-10-04 11:34 | disposition home or self-care (01) | DRG 885 ==
LOC: P2L 09-25 02:55 → P2S 09-25 02:55 → P2L 09-27 16:42
DX: F33.1 Major depressive disorder, recurrent, moderate (principal); G40.909 Epilepsy, unspecified, not intractable, without status epilepticus; I10 Essential (primary) hypertension; E78.5 Hyperlipidemia, unspecified; F10.20 Alcohol dependence, uncomplicated; F17.210 Nicotine dependence, cigarettes, uncomplicated; R60.0 Localized edema; K13.79 Other lesions of oral mucosa
CPT/HCPCS: 73630